=== PATIENT | male | born 1965 | race Caucasian/White ===

== ENCOUNTER → 2016-10-03 | Outpatient (CLI) | payer OTHER ==
[~2016-10-03] MED LIST: BUSPAR15 M1 PO; KEFLEX PO; PAXIL40 MG PO; PROTONIX PO
--- NOTE | ~2016-10-03 | CR213 ---
[facility] A Service of [facility] & [facility] RADIOLOGY TEXT RESULTS PATIENT: JEANNE MEJIA LOCATION: [facility] : 61 UNIT #: [id number] AGE: [address]: Nenita Land MD SEX: M ORDER DR: [id number] [facility] [address] [place], [place] [address] [id number] O MR#: [id number] Acc #: [id number] NAME: JEANNE MEJIA : 1965 SEX: M STUDY DATE/TIME: 10/03/2016 13:02 UNIT: [facility] ROOM: STUDY DESCRIPTION: CR Ribs Unilateral 2 View Rt Attending Physician: Nenita Land M.D. Ordering Physician: Nenita Land M.D. Primary Care Physician: Nenita Land M.D. MEDICAL IMAGING REPORT This report is preliminary unless electronic signature is present EXAM Right ribs 4 views HISTORY Pain for 1 month. No injury. FINDINGS Four views of the right ribs demonstrate no fracture. No pneumothorax or pleural effusion. IMPRESSION Negative right ribs Dictated by... Andrea Leal M.D. THIS IS AN ELECTRONICALLY VERIFIED REPORT Andrea Leal M.D. at 10/04/2016 10:08 PM ELY/michi TD: 10/04/2016 17:16 JOB #: [id number] MEDICAL IMAGING REPORT Page 1 of 1 COPY
== END | disposition home or self-care (01) ==
LOC: CRAD 12:42
DX: R07.81 Pleurodynia (principal)
CPT/HCPCS: 71100

== ENCOUNTER → 2016-10-18 | Outpatient (CLI) | payer OTHER ==
--- NOTE | ~2016-10-18 | CT122 ---
[facility] A Service [facility] RADIOLOGY TEXT RESULTS PATIENT: JEANNE MEJIA LOCATION: [facility] : 61 UNIT #: [id number] AGE: [address]: Nenita Land MD SEX: M ORDER DR: [id number] [facility] [address] [place], [place] [address] [id number] O MR#: [id number] Acc #: [id number] NAME: JEANNE MEJIA : 1965 SEX: M STUDY DATE/TIME: 10/18/2016 10:10 UNIT: [facility] ROOM: STUDY DESCRIPTION: CT Thoracic Spine Wo Cont Attending Physician: Nenita Land M.D. Referring Physician: Nenita Land M.D. Ordering Physician: Nenita Land M.D. Primary Care Physician: Nenita Land M.D. MEDICAL IMAGING REPORT This report is preliminary unless electronic signature is present EXAM Thoracic spine CT, 10/18. HISTORY Back pain and rib pain for the last 6 months. TECHNIQUE Axial images were obtained through the thoracic spine without contrast. Multiplanar reformats were obtained. This CT exam was performed with one or more of the following radiation dose reduction techniques: automatic exposure control, adjustment of mA and/or kV according to patient size, and iterative reconstruction. COMPARISON No comparison. FINDINGS No fracture or subluxation is seen. There is minimal mid to upper thoracic levoscoliosis. Alignment is otherwise normal. At T4-5, there is some mild posterior broad-based disc bulge without definite central canal or foraminal stenosis. There is also some left side facet arthropathy at this level which does exert some posterior mass effect on the left side of the thecal sac. At T6-7, there is a broad-based posterior disc bulge resulting in at least mild central canal stenosis. At T7-8, there is a mild posterior broad-based disc bulge without significant central canal or foraminal narrowing. At T8-9, there is a mild posterior broad-based disc bulge without STS. [facility] A Service [facility] RADIOLOGY TEXT RESULTS PATIENT: JEANNE MEJIA LOCATION: [facility] : 61 UNIT #: [id number] AGE: [address]: Nenita Land MD SEX: M ORDER DR: significant central canal or neural foraminal stenosis. IMPRESSION 1. No compression fractures are seen and there is no spondylolisthesis. There is very mild mid to upper lumbar levoscoliosis. 2. Multilevel degenerative disc disease as detailed above with some mild facet arthropathy noted at T4-5. MRI would be beneficial for further characterization. Dictated by... Alan Renteria Jr., M.D. THIS IS AN ELECTRONICALLY VERIFIED REPORT Alan Renteria Jr., M.D. at 10/20/2016 4:42 PM BRUCE/mauri TD: 10/20/2016 15:27 JOB #: [id number] MEDICAL IMAGING REPORT Page 1 of 1 COPY
== END | disposition home or self-care (01) ==
LOC: CCAT 09:45
DX: M54.9 Dorsalgia, unspecified (principal); R07.81 Pleurodynia; M51.34 Other intervertebral disc degeneration, thoracic region; M46.94 Unspecified inflammatory spondylopathy, thoracic region; M41.9 Scoliosis, unspecified
CPT/HCPCS: 72128